=== PATIENT | female | born 1955 | race Caucasian/White ===

== ENCOUNTER → 2016-08-03 | Outpatient (CLI) | payer BC ==
[~2016-08-03] MED LIST: B-COMPLEX-501 CAP PO; COENZYME Q10 30 MG PO; FISH OIL CONC1000 MG PO; LASIX40 MG PO; LEVAQUIN 750 M750 MG PO; LORTAB 5/500 501 TAB PO; PHARMASSURE RE250 MG PO; POTASSIUM CHLO20 ME2 PO; PROBIOTIC FORMU1 CA1 PO; PYRIDIUM 200MG200 MG PO; SPIRONOLACTONE25 MG PO
--- NOTE | 2016-08-03 10:47 | RADIOLOGY REPORT PS360 ---
HIP LT 2-3V W/PELVIS IF PERFOR HISTORY: Left hip pain ABDIRIZAK HIP JOINT PAIN ORDERING PHYSICIAN: Jason Guzman MD PATIENT AGE: 60 years COMPARISON: 01/04/2014 FINDINGS: Moderate osteoarthritic changes are present involving the left hip with decrease in joint space, osteosclerosis, and osteophyte formation. No fracture or dislocation. No lytic or blastic change. Slight progression of the osteoarthritis compared to 01/04/2014. IMPRESSION: Moderate osteoarthritis of the left hip
--- NOTE | 2016-08-03 10:49 | RADIOLOGY REPORT PS360 ---
HIP RT 2-3V W/PELVIS IF PERFOR HISTORY: Right hip pain ABDIRIZAK HIP JOINT PAIN ORDERING PHYSICIAN: Jason Guzman MD PATIENT AGE: 60 years COMPARISON: 01/04/2014 FINDINGS: There has been an interval total hip replacement on the right. No evidence of orthopedic complications. Good alignment of the prosthesis. No fracture or dislocation. No lytic or blastic change. IMPRESSION: 1. Status post total right hip replacement. 2. No acute finding
== END ==
LOC: RAD 10:02
DX: M25.551 Pain in right hip (principal)

== ENCOUNTER → 2017-03-15 | Outpatient (CLI) | payer BC ==
--- NOTE | 2017-03-15 21:00 | RADIOLOGY REPORT PS360 ---
PROCEDURE: 2-D M-mode and color Doppler study INDICATIONS FOR THE TEST: Chest pain X COPD Heart Murmur Tobacco Smoking Palpitations Fatigue Syncope Edema Hypertension Diabetes Mellitus Rheumatic FeverX SOB BOJORQUEZ ObesityXHyperlipidemia Family History HD Additional History PATIENT INFORMATION HEIGHT:65 WEIGHT:250 GENDER: Female B/P:120/78 2-D/M-MODE INTERPRETATION: 2-D MEASUREMENTS OBSERVED VALUES IN CMS Right Ventricular Dimension (RVDd) 1.7 Interventricular Septum (Thickness)(IVsd) 1.2 Left Ventricular Internal Dimensions(LVIDd) 5.5 Left Ventricular Posterior Wall (Thickness)(LVPWd) 1.0 Aortic Root 3.6 Aortic Cusp Separation 1.7 Left Atrial Dimensions (LAD) 2.9 2D 1. Left atrium is normal size, left ventricle is normal size, left ventricle wall thickness is upper limit of the normal, there is preserved left ventricular systolic function, visually estimated ejection fraction 55% with no obvious regional wall motion abnormality. 2. The right atrium is normal size, right ventricle is mildly enlarged with normal contractility. 3. The aortic valve is minimally thickened and fibrosed. 4. The mitral and tricuspid valve are structurally normal. 5. The pulmonic valve is poorly visualized. 6. No significant pericardial effusion noted. DOPPLER INTERROGATION: Doppler interrogation of the aortic, mitral and tricuspid valvular presence of mild mitral and tricuspid regurgitation, calculated right ventricular systolic pressure is 40 mmHg consistent with mild pulmonary hypertension, diastolic parameters are within normal range. CONCLUSION: 1. Normal left ventricular size, preserved left ventricular systolic function, visually estimated ejection fraction 55% with no obvious regional wall motion abnormality, diastolic parameters are within normal range. 2. Mildly enlarged right ventricle with normal contractility. 3. Mild mitral and tricuspid regurgitation, calculated right ventricular systolic pressure is 40 mmHg consistent with mild pulmonary hypertension. 4. No significant pericardial effusion noted.
== END ==
LOC: RT 15:00
DX: R07.9 Chest pain, unspecified (principal)